=== PATIENT | female | born 2000 | race Caucasian/White ===

== ENCOUNTER 2025-02-25 14:53 | Emergency (ER) | payer BC ==
[2025-02-26] MEDS ORDERED: CEPHALEXIN500 M1 PO (08:57)
[2025-02-26] MEDS ORDERED: SEPTDS PO (08:57)
== END 2025-02-25 15:57 | disposition left against medical advice (07) ==
LOC: ED 14:53
DX: L02.91 Cutaneous abscess, unspecified (principal); Z53.21 Procedure and treatment not carried out due to patient leaving prior to being seen by health care provider

== ENCOUNTER 2025-02-26 08:33 | Emergency (ER) | payer BC ==
[~2025-02-26] VITALS: Ht 160 cm; Wt 70.4 kg
[2025-02-26] MEDS ORDERED: CEPHALEXIN500 M1 PO (08:57)
[2025-02-26] MEDS ORDERED: SEPTDS PO (08:57)
== END 2025-02-26 09:14 | disposition home or self-care (01) ==
LOC: ED 08:33
DX: L02.415 Cutaneous abscess of right lower limb (principal)

== ENCOUNTER 2025-03-07 11:00 | Inpatient (IN) | payer BC ==
[~2025-03-07] VITALS: Ht 160 cm; Wt 71.5 kg
[~2025-03-07 11:00] MED LIST: CEPHALEXIN500 M1 PO; SEPTDS PO
[2025-03-07 11:18] VITALS: BP 137/99
[2025-03-07] MEDS ORDERED: Thiamine 200 MG/2 ML VIAL IV ONE (11:50)
[2025-03-07] MEDS ORDERED: MAGNESIUM SULFATE 100 ML IV ONE ×2 (11:50→15:35)
[2025-03-07] MEDS ORDERED: FOLIC ACID 1 MG TAB PO ONE ×2 (11:50→15:35)
[2025-03-07] MEDS ORDERED: diazePAM 10 MG/2 ML SYR IV ONE ×2 (11:55→15:25)
[2025-03-07] MEDS ORDERED: MULTIVITAMIN 1 TAB TAB PO ONE (11:55)
[2025-03-07] MEDS ORDERED: SODIUM CHLORIDE 0.9% 1,000 ML IV ONE (11:55)
[2025-03-07 12:09] LABS: BILIRUBIN Negative (Negative); BLOOD Negative (Negative); CLARITY Cloudy (Clear); COLOR Yellow (Yellow); GLUCOSE Negative (Negative); KETONE Trace (Negative); LEUKO ESTERASE 1+ (Negative); NITRITE Negative (Negative); SPECIFIC GRAVITY >= 1.030 (1.001-1.030)
[2025-03-07 12:22] LABS: BACTERIA 4+; EPITHELIAL CELLS 16-20; MUCOUS 1+; URINE AMPHETAMINES Negative (1000ng/ml); URINE BARBITURATES Negative (200ng/ml); URINE BENZODIAZEPINES Negative (200ng/ml); URINE CANNABINOIDS (THC) Positive (50ng/ml); URINE COCAINE Negative (300ng/ml); URINE METHADONE Negative (300ng/ml); URINE OPIATES Negative (300ng/ml); URINE PHENCYCLIDINE Negative (25ng/ml)
[2025-03-07 12:23] LABS: BASO % 0.4 % (0.0-1.0); EOS # 0.1 10*3/uL (0.0-0.4); EOS % 0.5 % (1.0-4.0); MEAN CELL VOLUME 87.6 fl (81.0-99.0); MEAN CORPUSCULAR HGB 30.7 pg (27.0-31.0); MEAN PLATELET VOLUME 10.8 fl (9.6-12.3); MONO # 0.3 10*3/uL (0.1-1.0); MONO % 3.2 % (3.0-9.0); NEUT # 7.5 10*3/uL (2.3-7.9); NEUT % 75.9 % (47.0-73.0); PLATELET COUNT AUTOMATED 253 10*3/uL (130-400); RED BLOOD COUNT 5.02 10*6/uL (4.10-5.10); RED CELL DISTRI WIDTH 12.3 % (0-14.5); WHITE BLOOD COUNT 9.9 10*3/uL (4.8-10.8)
[2025-03-07 12:44] LABS: ALKALINE PHOSPHATASE 104 U/L (46-116); BUN 14 mg/dl (9-23); CHLORIDE 103 mmol/L (98-107); CPK 84 U/L (34-171); LIPASE 32 U/L (12-53); POTASSIUM 3.5 mmol/L (3.4-5.1); SGPT/ALT 32 U/L (5-49); TOTAL PROTEIN 7.8 gm/dL (6.0-8.0)
[2025-03-07 12:49] LABS: ETHYL ALCOHOL < 3.0 mg/dl (<3)
[2025-03-07] MEDS ORDERED: Ondansetron Hydrochloride 4 MG/2 ML VIAL IV ONE (13:20)
[2025-03-07] MEDS ORDERED: MG-AL HYDROXIDE/SIMETICONE 30 ML UDC PO PRN (15:35)
[2025-03-07] MEDS ORDERED: Dicyclomine Hydrochloride 20 MG TAB PO PRN (15:35)
[2025-03-07] MEDS ORDERED: Ondansetron Hydrochloride 4 MG TAB PO PRN (15:35)
[2025-03-07] MEDS ORDERED: Sennosides A and B 8.6 MG TAB PO PRN (15:35)
[2025-03-07] MEDS ORDERED: Ondansetron Hydrochloride 4 MG/2 ML VIAL IV PRN (15:35)
[2025-03-07] MEDS ORDERED: IBUPROFEN 600 MG TAB PO PRN (15:35)
[2025-03-07] MEDS ORDERED: METHOCARBAMOL 750 MG TAB PO PRN (15:35)
[2025-03-07] MEDS ORDERED: Loperamide Hydrochloride 2 MG CAP PO PRN ×2 (15:35)
[2025-03-07] MEDS ORDERED: Nicotine 21 MG PATCH T PRN (15:35)
[2025-03-07] MEDS ORDERED: hydrOXYzine 50 MG CAP PO PRN (15:35)
[2025-03-07] MEDS ORDERED: ACETAMINOPHEN 500 MG TAB PO PRN (15:35)
[2025-03-07] MEDS ORDERED: Water, Sterile 10 ML VIAL IV PRN (15:35)
[2025-03-07] MEDS ORDERED: BISACODYL 10 MG SUPP R PRN (15:35)
[2025-03-07] MEDS ORDERED: LORazepam 2 MG/ML VIAL IV PRN (15:35)
[2025-03-07] MEDS ORDERED: LORazepam 1 MG TAB PO SCH (16:00)
[2025-03-07] MEDS ORDERED: cefTRIAXone Sodium 10 ML IV SCH (16:30)
[2025-03-07 17:30] VITALS: BP 132/95
[2025-03-07 20:00] VITALS: BP 129/87
[2025-03-07] MEDS ORDERED: Thiamine 200 MG/2 ML VIAL IV SCH (20:00)
[2025-03-07] MEDS ORDERED: traZODone Hydrochloride 50 MG TAB PO PRN (22:00)
[2025-03-08] VITALS: BP 124/88
[2025-03-08 04:04] VITALS: BP 118/82
[2025-03-08 06:11] LABS: BASO % 0.4 % (0.0-1.0); EOS # 0.1 10*3/uL (0.0-0.4); EOS % 1.4 % (1.0-4.0); HEMATOCRIT 38.5 % (37.0-47.0); MEAN CELL VOLUME 88.3 fl (81.0-99.0); MEAN CORPUSCULAR HGB CONC 35.1 g/dl (33.0-37.0); MEAN PLATELET VOLUME 11.1 fl (9.6-12.3); MONO # 0.5 10*3/uL (0.1-1.0); MONO % 7.2 % (3.0-9.0); NEUT # 3.3 10*3/uL (2.3-7.9); NEUT % 44.9 % (47.0-73.0); PLATELET COUNT AUTOMATED 207 10*3/uL (130-400); RED BLOOD COUNT 4.36 10*6/uL (4.10-5.10); RED CELL DISTRI WIDTH 12.3 % (0-14.5); WHITE BLOOD COUNT 7.2 10*3/uL (4.8-10.8)
[2025-03-08 06:25] LABS: ALKALINE PHOSPHATASE 90 U/L (46-116); BUN 11 mg/dl (9-23); CHLORIDE 106 mmol/L (98-107); POTASSIUM 3.3 mmol/L (3.4-5.1); SGPT/ALT 22 U/L (5-49); TOTAL PROTEIN 5.9 gm/dL (6.0-8.0)
[2025-03-08 08:00] VITALS: BP 135/92
[2025-03-08] MEDS ORDERED: POTASSIUM CHLORIDE 20 MEQ TAB PO ONE (09:30)
[2025-03-08] MEDS ORDERED: MULTIVITAMIN 1 TAB TAB PO SCH ×2 (10:00)
[2025-03-08] MEDS ORDERED: Enoxaparin Sodium 40 MG/0.4 ML SYR SC SCH (10:00)
[2025-03-08] MEDS ORDERED: FOLIC ACID 1 MG TAB PO SCH (10:00)
[2025-03-08 12:00] VITALS: BP 132/84
[2025-03-08] MEDS ORDERED: ERYTHROMYCIN 1 GM TUBE OPH ONE (14:35)
[2025-03-08 16:00] VITALS: BP 132/92
[2025-03-08 20:00] VITALS: BP 125/90
[2025-03-08] MEDS ORDERED: LORazepam 1 MG TAB PO SCH (22:00)
[2025-03-09] VITALS: BP 115/87
[2025-03-09] MEDS ORDERED: LORazepam 1 MG TAB PO PRN
[2025-03-09 03:56] VITALS: BP 111/79
[2025-03-09 06:39] LABS: BASO # 0.1 10*3/uL (0.0-0.1); BASO % 0.8 % (0.0-1.0); EOS # 0.1 10*3/uL (0.0-0.4); EOS % 2.2 % (1.0-4.0); HEMATOCRIT 39.2 % (37.0-47.0); MEAN CELL VOLUME 89.9 fl (81.0-99.0); MEAN CORPUSCULAR HGB 30.7 pg (27.0-31.0); MEAN CORPUSCULAR HGB CONC 34.2 g/dl (33.0-37.0); MEAN PLATELET VOLUME 11.5 fl (9.6-12.3); MONO # 0.5 10*3/uL (0.1-1.0); NEUT # 2.5 10*3/uL (2.3-7.9); NEUT % 38.1 % (47.0-73.0); PLATELET COUNT AUTOMATED 191 10*3/uL (130-400); RED BLOOD COUNT 4.36 10*6/uL (4.10-5.10); RED CELL DISTRI WIDTH 12.2 % (0-14.5); WHITE BLOOD COUNT 6.4 10*3/uL (4.8-10.8)
[2025-03-09 06:45] LABS: ALKALINE PHOSPHATASE 117 U/L (46-116); BUN 11 mg/dl (9-23); CHLORIDE 103 mmol/L (98-107); POTASSIUM 3.8 mmol/L (3.4-5.1); SGPT/ALT 24 U/L (5-49); TOTAL PROTEIN 6.3 gm/dL (6.0-8.0)
[2025-03-09 08:00] VITALS: BP 116/81
[2025-03-09] MEDS ORDERED: Thiamine 100 MG TAB PO SCH (10:00)
[2025-03-09 12:00] VITALS: BP 109/68
[2025-03-09 16:00] VITALS: BP 120/75
[2025-03-09 20:00] VITALS: BP 117/89
[2025-03-10] VITALS: BP 119/85
[2025-03-10 08:00] VITALS: BP 114/81
[2025-03-10] MEDS ORDERED: NATURE'S BLEND F1 MG PO (09:11)
[2025-03-10] MEDS ORDERED: NATURE'S BLEND100 M2 PO (09:11)
[2025-03-10] MEDS ORDERED: ATARAX,VISTARIL50 MG PO (09:11)
== END 2025-03-10 09:55 | disposition home or self-care (01) | DRG 897 ==
LOC: ED 11:00 → EDHOLD 14:41 → 4E 14:41
PROVIDERS: Internal Medicine; Registered Nurse; ADMIT Internal Medicine; ATTEND Internal Medicine
DX: F10.130 Alcohol abuse with withdrawal, uncomplicated (principal); N39.0 Urinary tract infection, site not specified; E83.42 Hypomagnesemia; R73.9 Hyperglycemia, unspecified; F12.90 Cannabis use, unspecified, uncomplicated; Y90.9 Presence of alcohol in blood, level not specified

== ENCOUNTER 2025-04-24 08:35 | Inpatient (IN) | payer BC ==
[~2025-04-24] VITALS: Ht 160 cm; Wt 72.6 kg
[~2025-04-24 08:35] MED LIST changes: +ATARAX,VISTARIL50 MG PO; +NATURE'S BLEND F1 MG PO; +NATURE'S BLEND100 M2 PO
[2025-04-24 08:36] VITALS: BP 128/88
[2025-04-24] MEDS ORDERED: LORazepam 1 MG TAB PO ONE (09:25)
[2025-04-24 09:35] LABS: BASO # 0.0 10*3/uL (0.0-0.1); BASO % 0.3 % (0.0-1.0); EOS # 0.0 10*3/uL (0.0-0.4); EOS % 0.1 % (1.0-4.0); MEAN CELL VOLUME 89.6 fl (81.0-99.0); MEAN CORPUSCULAR HGB 30.6 pg (27.0-31.0); MEAN PLATELET VOLUME 10.5 fl (9.6-12.3); MONO # 0.4 10*3/uL (0.1-1.0); MONO % 4.2 % (3.0-9.0); NEUT # 6.5 10*3/uL (2.3-7.9); NEUT % 71.9 % (47.0-73.0); NUCLEATED RED BLOOD CELL 0.0 % (0.0-0.0); NUCLEATED RED BLOOD CELL 0.0 10*3/uL (0.0-0.0); PLATELET COUNT AUTOMATED 201 10*3/uL (130-400); RED CELL DISTRI WIDTH 12.8 % (0-14.5)
[2025-04-24 09:51] LABS: BILIRUBIN Negative (Negative); BLOOD Negative (Negative); CLARITY Cloudy (Clear); COLOR Yellow (Yellow); KETONE 1+ (Negative); LEUKO ESTERASE Negative (Negative); NITRITE Negative (Negative); PH 6.0 (4.5-8.0); SPECIFIC GRAVITY >= 1.030 (1.001-1.030); UROBILINOGEN 1.0 E.U./dl (0.0-1.0)
[2025-04-24] MEDS ORDERED: SODIUM CHLORIDE 0.9% 1,000 ML IV ONE (09:55)
[2025-04-24 09:59] LABS: BUN 13 mg/dl (9-23); ETHYL ALCOHOL 24.8 mg/dl (<3); SGPT/ALT 31 U/L (5-49)
[2025-04-24 10:04] LABS: URINE AMPHETAMINES Negative (1000ng/ml); URINE BARBITURATES Negative (200ng/ml); URINE BENZODIAZEPINES Negative (200ng/ml); URINE CANNABINOIDS (THC) Positive (50ng/ml); URINE COCAINE Negative (300ng/ml); URINE METHADONE Negative (300ng/ml); URINE OPIATES Negative (300ng/ml); URINE PHENCYCLIDINE Negative (25ng/ml)
[2025-04-24 10:12] LABS: BACTERIA 1+; EPITHELIAL CELLS TNTC; WBC 0-2 wbc/hpf (0-5)
[2025-04-24] MEDS ORDERED: Ondansetron Hydrochloride 4 MG/2 ML VIAL IV PRN (11:05)
[2025-04-24] MEDS ORDERED: BISACODYL 10 MG SUPP R PRN (11:05)
[2025-04-24] MEDS ORDERED: ACETAMINOPHEN 325 MG TAB PO PRN (11:05)
[2025-04-24] MEDS ORDERED: ACETAMINOPHEN 650 MG SUPP R PRN (11:05)
[2025-04-24] MEDS ORDERED: BISACODYL 5 MG TAB PO PRN (11:05)
[2025-04-24] MEDS ORDERED: TEMAZEPAM 15 MG CAP PO PRN (11:05)
[2025-04-24] MEDS ORDERED: METHOCARBAMOL 750 MG TAB PO PRN (11:10)
[2025-04-24] MEDS ORDERED: Ondansetron Hydrochloride 4 MG TAB PO PRN (11:10)
[2025-04-24] MEDS ORDERED: Dicyclomine Hydrochloride 20 MG TAB PO PRN (11:10)
[2025-04-24] MEDS ORDERED: FOLIC ACID 1 MG TAB PO ONE (11:10)
[2025-04-24] MEDS ORDERED: hydrOXYzine 50 MG CAP PO PRN (11:10)
[2025-04-24] MEDS ORDERED: MG-AL HYDROXIDE/SIMETICONE 30 ML UDC PO PRN (11:10)
[2025-04-24] MEDS ORDERED: IBUPROFEN 600 MG TAB PO PRN (11:10)
[2025-04-24 11:45] VITALS: BP 130/94
[2025-04-24] MEDS ORDERED: LORazepam 1 MG TAB PO SCH (12:00)
[2025-04-24 20:00] VITALS: BP 131/87
[2025-04-25] VITALS: BP 132/92
[2025-04-25 06:14] LABS: BASO # 0.1 10*3/uL (0.0-0.1); BASO % 0.8 % (0.0-1.0); EOS # 0.1 10*3/uL (0.0-0.4); EOS % 1.2 % (1.0-4.0); MEAN CELL VOLUME 90.5 fl (81.0-99.0); MEAN CORPUSCULAR HGB 30.5 pg (27.0-31.0); MEAN PLATELET VOLUME 11.5 fl (9.6-12.3); MONO # 0.4 10*3/uL (0.1-1.0); MONO % 6.5 % (3.0-9.0); NEUT # 3.2 10*3/uL (2.3-7.9); NEUT % 48.9 % (47.0-73.0); NUCLEATED RED BLOOD CELL 0.0 % (0.0-0.0); NUCLEATED RED BLOOD CELL 0.0 10*3/uL (0.0-0.0); PLATELET COUNT AUTOMATED 183 10*3/uL (130-400); RED CELL DISTRI WIDTH 12.8 % (0-14.5)
[2025-04-25 07:19] LABS: VITAMIN D, 25-HYDROXY 49.1 ng/mL (30-100)
[2025-04-25 07:23] LABS: BUN 13 mg/dl (9-23); FREE T4 1.24 ng/dl (0.89-1.76)
[2025-04-25 08:00] VITALS: BP 138/89
[2025-04-25] MEDS ORDERED: MULTIVITAMIN 1 TAB TAB PO SCH (10:00)
[2025-04-25 12:00] VITALS: BP 122/84
[2025-04-25] MEDS ORDERED: LORazepam 1 MG TAB PO SCH (14:00)
[2025-04-25 16:00] VITALS: BP 121/80
[2025-04-25 20:00] VITALS: BP 144/89
[2025-04-26] VITALS: BP 114/67
[2025-04-26 08:00] VITALS: BP 109/72
[2025-04-26] MEDS ORDERED: LORazepam 1 MG TAB PO PRN (16:00)
== END 2025-04-26 12:15 | disposition home or self-care (01) | DRG 897 ==
LOC: ED 08:35 → 4E 10:41 → EDHOLD 10:41 → 4E 11:08
PROVIDERS: Internal Medicine; ADMIT Student in an Organized Health Care Education/Training Program; ATTEND Student in an Organized Health Care Education/Training Program
DX: F10.139 Alcohol abuse with withdrawal, unspecified (principal); F42.9 Obsessive-compulsive disorder, unspecified; F41.9 Anxiety disorder, unspecified; R74.01 Elevation of levels of liver transaminase levels; F12.90 Cannabis use, unspecified, uncomplicated; F17.200 Nicotine dependence, unspecified, uncomplicated; Z79.899 Other long term (current) drug therapy; Z79.01 Long term (current) use of anticoagulants; Z82.49 Family history of ischemic heart disease and other diseases of the circulatory system; Y90.0 Blood alcohol level of less than 20 mg/100 ml

== ENCOUNTER 2025-04-27 10:22 | Emergency (ER) | payer BC | END 2025-04-27 12:55 | disposition left against medical advice (07) | LOC: ED 10:22 | DX: N94.6 Dysmenorrhea, unspecified (principal); Z53.21 Procedure and treatment not carried out due to patient leaving prior to being seen by health care provider ==

== ENCOUNTER → 2025-08-29 | Outpatient (CLI) | payer BC ==
[2025-08-29 12:22] LABS: BASO # 0.0 10*3/uL (0.0-0.1); BASO % 0.7 % (0.0-1.0); EOS # 0.1 10*3/uL (0.0-0.4); EOS % 1.4 % (1.0-4.0); MEAN CELL VOLUME 90.4 fl (81.0-99.0); MEAN CORPUSCULAR HGB 30.2 pg (27.0-31.0); MEAN PLATELET VOLUME 11.5 fl (9.6-12.3); MONO # 0.4 10*3/uL (0.1-1.0); MONO % 6.7 % (3.0-9.0); NEUT # 3.2 10*3/uL (2.3-7.9); NEUT % 57.3 % (47.0-73.0); NUCLEATED RED BLOOD CELL 0.0 % (0.0-0.0); NUCLEATED RED BLOOD CELL 0.0 10*3/uL (0.0-0.0); PLATELET COUNT AUTOMATED 198 10*3/uL (130-400); RED CELL DISTRI WIDTH 12.4 % (0-14.5)
[2025-08-29 12:58] LABS: BUN 8 mg/dl (9-23); GAMMA GLUTAMYL TRANSFERASE 32 U/L (0-38); LDL CHOLESTEROL 144 mg/dL (9-159); SGPT/ALT 51 U/L (5-49)
== END | disposition short-term general hospital (02) ==
LOC: LAB 12:04
PROVIDERS: ATTEND Nurse Practitioner Family
DX: Z13.1 Encounter for screening for diabetes mellitus (principal); Z13.220 Encounter for screening for lipoid disorders; R74.01 Elevation of levels of liver transaminase levels; F10.10 Alcohol abuse, uncomplicated